=== PATIENT | female | born 1935 | race Caucasian/White ===

== ENCOUNTER 2023-05-24 13:17 | Emergency (ER) | payer BC, MEDICAID ==
[~2023-05-24] VITALS: Ht 157.5 cm; Wt 56.7 kg
[2023-05-24 13:25] VITALS: BP_SYST 148; PULSE 74; RESP 18; TEMP 97; O2SAT 96
[2023-05-24 17:13] VITALS: BP_SYST 135; PULSE 74; RESP 18; TEMP 97.1; O2SAT 97
== END 2023-05-24 17:00 | disposition home or self-care (01) ==
LOC: SED 13:17
DX: Z04.3 Encounter for examination and observation following other accident (principal); M25.511 Pain in right shoulder; R20.2 Paresthesia of skin; Z79.899 Other long term (current) drug therapy
CPT/HCPCS: 72192-TC; 73030; 76376; 99284